=== PATIENT | female | born 1970 | race Caucasian/White ===

== ENCOUNTER 2016-09-25 08:17 | Emergency (ER) | payer OTHER ==
[~2016-09-25] VITALS: Ht 170.2 cm; Wt 81.4 kg
[~2016-09-25 08:17] MED LIST: ADVIL200 M2 PO; ALEVE220 MG PO; ATIVAN0.5 MG PO; CIPRO500 MG PO; CLINDAMYCIN HC300 MG PO; FLOMAX0.4 MG PO; MACROBID100 MG PO; NITROFURANTOIN50 MG PO; NOHOMEMEDS; NORCO 5/3251 TABLET PO; PERCOCET 5/31 TABLET PO; PRAVACHOL10 MG PO; PYRIDIUM200 MG PO; TRAMADOL HCL50 MG PO; ULTRAM50 MG PO; VICODIN 5-3001 EACH PO; ZOFRAN4 MG PO
[2016-09-25 10:18] LABS: HEMATOCRIT 42.7 % (36.0-46.0); MCV 93.8 FL (83-99); RBC DIS.WIDTH-CV 13.5 % (11.8-14.6); RBC DIS.WIDTH-SD 46.5 % (39-53); RED BLOOD COUNT 4.55 M/uL (3.80-5.20)
[2016-09-25 10:27] LABS: CHLORIDE 106 mEq/L (99-109); SODIUM 139 mEq/L (136-147)
[2016-09-25 10:29] LABS: GLUCOSE 107 mg/dL (70-99)
[2016-09-25 10:30] LABS: ANION GAP 10 MEQ/L (2-14)
[2016-09-25 10:31] LABS: TOTAL BILIRUBIN 0.5 mg/dL (0.0-1.0)
[2016-09-25 10:32] LABS: ALKALINE PHOSPHATASE 69 IU/L (3-129)
[2016-09-25 10:33] LABS: GFR ESTIMATE (CALCULATED) > 59 mL/min/
[2016-09-25 10:34] LABS: UREA NITROGEN (BUN) 9 mg/dL (9-23)
[2016-09-25 10:36] LABS: LIPASE 27 U/L (1.0-51.0)
[2016-09-25 10:57] LABS: MEAN PLAT.VOLUME 12.5 uM^3 (9.5-12.4); PLAT.SUFFICIENCY ADEQUATE; PLATELET COUNT 166 K/uL (156-360)
[2016-09-25] MEDS ORDERED: PROTONIX40 M1 PO (12:52)
[2016-09-25 13:12] VITALS: BP 122/58
== END 2016-09-25 13:18 | disposition home or self-care (01) ==
LOC: EME 08:17
PROVIDERS: Emergency Medicine
DX: R10.11 Right upper quadrant pain (principal); R11.0 Nausea; R14.0 Abdominal distension (gaseous); Z87.442 Personal history of urinary calculi; F17.200 Nicotine dependence, unspecified, uncomplicated
CPT/HCPCS: 76705; 80053; 83690; 85027; 99281; 99284; J7030

== ENCOUNTER 2017-03-20 10:12 | Emergency (ER) | payer OTHER ==
[~2017-03-20] VITALS: Ht 170.2 cm; Wt 81.2 kg
[~2017-03-20 10:12] MED LIST changes: +PROTONIX40 M1 PO
[2017-03-20 10:53] LABS: HEMATOCRIT 44.2 % (36.0-46.0); MCH 31.2 PG (29.0-34.0); MCHC 33.3 G/DL (30.0-36.0); MCV 93.8 FL (83-99); RBC DIS.WIDTH-CV 13.3 % (11.8-14.6); RBC DIS.WIDTH-SD 46.3 % (39-53); RED BLOOD COUNT 4.71 M/uL (3.80-5.20)
[2017-03-20 11:33] LABS: ADD MIUA? YES; BILIRUBIN NEGATIVE; BLOOD LARGE; COLOR YELLOW ((YELLOW)); GLUCOSE (STRIP) NEGATIVE; KETONES 20; LEUKOCYTES MODERATE; NITRITE NEGATIVE; PROTEIN (STRIP) 30; SPECIFIC GRAVITY 1.031 (1.000-1.030)
[2017-03-20 11:59] LABS: EPITHELIAL CELLS 1+ /HPF; MUCUS NONE SEEN /LPF; WHITE BLOOD CELLS 15-20 /HPF (0-5)
[2017-03-20 12:00] LABS: AMORPHOUS URATES CRYSTALS 3+; BACTERIA RARE /HPF; CRYSTALS PRESENT; UCUL ADDED? YES
[2017-03-20 12:16] LABS: PLATELET COUNT UNABLE TO REPORT K/uL (156-360)
[2017-03-20 12:26] LABS: CHLORIDE 106 mEq/L (99-109); POTASSIUM 3.5 mEq/L (3.7-5.4); SODIUM 140 mEq/L (136-147)
[2017-03-20 12:28] LABS: GLUCOSE 96 mg/dL (70-99)
[2017-03-20 12:29] LABS: ANION GAP 11 MEQ/L (2-14)
[2017-03-20 12:32] LABS: GFR ESTIMATE (CALCULATED) > 59 mL/min/; UREA NITROGEN (BUN) 8 mg/dL (9-23)
[2017-03-20 13:13] LABS: TOTAL BILIRUBIN 0.4 mg/dL (0.0-1.0)
[2017-03-20 13:14] LABS: ALKALINE PHOSPHATASE 63 IU/L (3-129)
[2017-03-20 13:17] LABS: DIRECT BILIRUBIN 0.1 mg/dL (0.0-0.3)
[2017-03-20 13:18] LABS: LIPASE 24 U/L (1.0-51.0)
[2017-03-20] MEDS ORDERED: CIPRO500 MG PO (14:14)
[2017-03-20] MEDS ORDERED: MOTRIN600 MG PO (14:14)
[2017-03-20 14:32] VITALS: BP 121/73
== END 2017-03-20 14:38 | disposition home or self-care (01) ==
LOC: EME 10:12
DX: N39.0 Urinary tract infection, site not specified (principal); M54.5 Low back pain; K21.9 Gastro-esophageal reflux disease without esophagitis; F41.9 Anxiety disorder, unspecified; Z87.440 Personal history of urinary (tract) infections; Z87.442 Personal history of urinary calculi; F17.200 Nicotine dependence, unspecified, uncomplicated; Z88.0 Allergy status to penicillin; Z88.1 Allergy status to other antibiotic agents
CPT/HCPCS: 74176; 80048; 80076; 81003; 83690; 85027; 87086; 99281; 99284; J1885

== ENCOUNTER 2017-06-19 13:16 | Emergency (ER) | payer OTHER ==
[~2017-06-19] VITALS: Ht 170.2 cm; Wt 79.5 kg
[~2017-06-19 13:16] MED LIST changes: +MOTRIN600 MG PO
[2017-06-19 14:08] LABS: HEMATOCRIT 43.5 % (36.0-46.0); HEMOGLOBIN 14.8 G/DL (11.9-15.5); MCH 31.7 PG (29.0-34.0); MCV 93.1 FL (83-99); RBC DIS.WIDTH-CV 13.3 % (11.8-14.6); RBC DIS.WIDTH-SD 45.1 % (39-53); RED BLOOD COUNT 4.67 M/uL (3.80-5.20); WHITE BLOOD COUNT 4.5 K/uL (4.1-10.2)
[2017-06-19 14:28] LABS: QUANTITATIVE HCG < 4.0 MIU/ML
[2017-06-19 14:45] LABS: PLAT.SUFFICIENCY DECREASED; PLATELET COUNT 154 K/uL (156-360)
[2017-06-19 15:44] LABS: CHLORIDE 108 mEq/L (99-109); POTASSIUM 4.1 mEq/L (3.7-5.4); SODIUM 142 mEq/L (136-147)
[2017-06-19 15:46] LABS: GLUCOSE 96 mg/dL (70-99)
[2017-06-19 15:50] LABS: CREATININE 0.7 mg/dL (0.6-1.3); GFR ESTIMATE (CALCULATED) > 59 mL/min/
[2017-06-19 15:51] LABS: UREA NITROGEN (BUN) 9 mg/dL (9-23)
[2017-06-19 16:19] LABS: APPEARANCE CLEAR ((CLEAR)); COLOR RED ((YELLOW))
[2017-06-19 16:20] LABS: SPECIFIC GRAVITY 1.015 (1.000-1.030)
[2017-06-19 16:24] LABS: PROTEIN (STRIP) 100
[2017-06-19 16:25] LABS: BILIRUBIN NEGATIVE; BLOOD LARGE; GLUCOSE (STRIP) NEGATIVE; KETONES MODERATE; UROBILINOGEN 0.2 MG/DL (0.2-1.0)
[2017-06-19 16:32] LABS: BACTERIA 3+ /HPF; EPITHELIAL CELLS 1+ /HPF; MUCUS NONE SEEN /LPF; RED BLOOD CELLS TNTC /HPF (0-5); UCUL ADDED? YES; WHITE BLOOD CELLS TNTC /HPF (0-5)
[2017-06-19 18:00] VITALS: BP 133/80
== END 2017-06-19 18:37 | disposition home or self-care (01) ==
LOC: EME 13:16
DX: N93.9 Abnormal uterine and vaginal bleeding, unspecified (principal); K21.9 Gastro-esophageal reflux disease without esophagitis; F41.9 Anxiety disorder, unspecified; F17.200 Nicotine dependence, unspecified, uncomplicated; Z87.440 Personal history of urinary (tract) infections; Z87.442 Personal history of urinary calculi; Z98.51 Tubal ligation status; Z88.1 Allergy status to other antibiotic agents; Z88.0 Allergy status to penicillin
CPT/HCPCS: 76856; 80048; 80048 91; 81003; 84702; 85027; 87086; 99281; 99283

== ENCOUNTER 2017-11-24 07:37 | Emergency (ER) | payer OTHER ==
[~2017-11-24] VITALS: Ht 170.2 cm; Wt 80.9 kg
[2017-11-24] MEDS ORDERED: TESSALON200 MG PO (08:36)
[2017-11-24] MEDS ORDERED: IPRATROPIUM BRO15 ML BOTH NARES (08:36)
[2017-11-24 09:34] VITALS: BP 124/56
== END 2017-11-24 09:35 | disposition home or self-care (01) ==
LOC: EME 07:37
DX: H53.8 Other visual disturbances (principal); J06.9 Acute upper respiratory infection, unspecified; H43.393 Other vitreous opacities, bilateral; F32.9 Major depressive disorder, single episode, unspecified; K21.9 Gastro-esophageal reflux disease without esophagitis; Z87.440 Personal history of urinary (tract) infections; Z88.1 Allergy status to other antibiotic agents; Z88.0 Allergy status to penicillin; F17.200 Nicotine dependence, unspecified, uncomplicated
CPT/HCPCS: 99281; 99283